=== PATIENT | male | born 1985 | race Caucasian/White ===

== ENCOUNTER 2017-02-06 12:46 | Emergency (ER) | payer BC ==
--- NOTE | 2017-02-06 13:47 | ED Physician Documentation ---
PD HPI CHEST PAIN - Stated complaint Stated Complaint: CP - Chief complaint Chief Complaint: Cardiac - History obtained from History obtained from: Patient - History of Present Illness Timing - onset: Last night (had brief chest pain last night for few minutes. again today when loading bag into car. No dyspnea. Concerned for heart related.) , Yesterday Timing - onset during: Light activity Timing - duration: Minutes Timing - details: Abrupt onset, Now resolved. No: Still present in ED Quality: Aching, Sharp, Pain Location: Substernal, Left chest Radiation: No: Jaw, Back Worsened by: No: Inspiration, Movement Associated symptoms: No: Shortness of air, Nausea, Vomiting, Feeling faint / dizzy, General Weakness Similar symptoms before: Has not had sx before Recently seen: Not recently seen Review of Systems Constitutional: denies: Fever, Chills Nose: denies: Rhinorrhea / runny nose, Congestion Throat: denies: Sore throat Cardiac: denies: Palpitations Respiratory: denies: Cough GI: denies: Nausea, Vomiting, Diarrhea Skin: denies: Rash, Lesions PD PAST MEDICAL HISTORY - Past Medical History Past Medical History: Yes Cardiovascular: Hypertension Respiratory: None Neuro: None - Past Surgical History Past Surgical History: No - Present Medications Home Medications: Ambulatory Orders Medication Instructions Recorded Confirmed FLUoxetine [PROzac] 10 mg PO DAILY 02/06/17 02/06/17 Lisinopril 10 mg PO DAILY 02/06/17 02/06/17 hydroCHLOROthiazide 12.5 mg PO DAILY 02/06/17 02/06/17 [Hydrochlorothiazide] - Allergies Allergies/Adverse Reactions: Allergies Allergy/AdvReac Type Severity Reaction Status Date / Time No Known Drug Allergies Allergy Verified 02/06/17 13:00 - Social History Does the pt smoke?: No Smoking Status: Never smoker PD ED PE NORMAL - Vitals Vital signs reviewed: Yes - General General: Alert and oriented X 3, No acute distress, Well developed/nourished - HEENT HEENT: Pharynx benign - Neck Neck: Supple, no meningeal sign, No adenopathy - Cardiac Cardiac: RRR, No murmur - Respiratory Respiratory: Clear bilaterally, Other (no chestwall tenderness) - Abdomen Abdomen: Soft, Non tender Results - Vitals Vitals: Oxygen O2 Source Room air - EKG (time done) 12:53 Rate: Rate (enter#) (65) Rhythm: NSR [place]: Normal Intervals: Normal [place] QRS: Normal Ischemia: Normal ST segments. No: ST elevation c/w ischemia, ST depression Compare to prior EKG: Old EKG unavailable - Labs Labs: Laboratory Tests 02/06/17 02/06/17 14:32 14:32 Sodium 141 Potassium 4.3 Chloride 104 Carbon Dioxide 26 Anion Gap 11.0 BUN 14 Creatinine 0.8 Estimated GFR (MDRD) 114 Glucose 90 Calcium 9.3 Total Bilirubin 0.6 AST 20 ALT 20 Alkaline Phosphatase 40 L Troponin I < 0.04 Total Protein 6.5 L Albumin 4.0 Globulin 2.5 Albumin/Globulin Ratio 1.6 Lipase 26 - Rads (name of study) chest Radiology: Prelim report reviewed, EMP read contemporaneously (normal) PD MEDICAL DECISION MAKING - ED course Complexity details: reviewed results, considered differential (low prob for ND given age and such. He was concerned given his history of HTN. Also did CXR with normal appearing mediastinum and lungs. ), d/w patient Departure - Departure Disposition: 01 Home, Self Care Clinical Impression: Chest pain Qualifiers: Chest pain type: precordial pain Qualified Code(s): R07.2 - Precordial pain Condition: Stable Record reviewed to determine appropriate education?: Yes Instructions: ED Chest Pain Atypical Unkn Cause Follow-Up: ROBERT CARDOSO MD [Primary Care Provider] - Comments: No signs of dangerous causes for the pain at this time. This may be musculoskeletal. You can take some Tylenol or ibuprofen if needed for the pains. Follow-up with your primary care should you have recurring episodes over the next several days. Return if other symptoms associated such as trouble breathing, fevers, lightheadedness, exertional symptoms consistently Discharge Date/Time: 02/06/17 15:40
--- NOTE | 2017-02-06 14:33 | XRAY Report ---
EXAM: CHEST RADIOGRAPHY EXAM DATE: 02/06/2017 02:21 PM. CLINICAL HISTORY: Anterior chest pain. COMPARISON: None. TECHNIQUE: 2 views. FINDINGS: Lungs/Pleura: Mildly hyperexpanded, but clear. No effusion or pneumothorax. Mediastinum: Heart and mediastinal contours are unremarkable. Upper lobe vessels not distended. Other: None. IMPRESSION: No acute disease. [facility] Referring Provider Line: [phone] SITE ID: [id number]
[2017-02-06 14:42] VITALS: BP 130/84
[2017-02-06 14:52] LABS: ALBUMIN/GLOBULIN RATIO 1.6 (1.0-2.2); BILIRUBIN,TOTAL 0.6 mg/dL (0.2-1.0); CALCIUM 9.3 mg/dL (8.5-10.3); CREATININE 0.8 mg/dL (0.6-1.2); TOTAL PROTEIN 6.5 g/dL (6.7-8.2)
== END 2017-02-06 15:40 | disposition home or self-care (01) ==
LOC: ED 12:46
DX: R07.2 Precordial pain (principal); I10 Essential (primary) hypertension
CPT/HCPCS: 36415; 71020; 80053; 83690; 84484; 93005; 99283; 99284

== ENCOUNTER 2022-09-18 11:34 | Emergency (ER) | payer BC, OTHER ==
[2022-09-18 11:54] VITALS: O2SAT 100
--- NOTE | 2022-09-18 11:59 | ED Physician Documentation ---
PD HPI UPPER EXT INJURY - Stated complaint Stated Complaint: LT THUMB LAC - Chief complaint Chief Complaint: Laceration - History obtained from History obtained from: Patient - History of Present Illness Location: Left, Finger (thumb) Type of injury: Laceration Associated symptoms: No: Weakness, Tingling Contributing factors: No: Anticoagulated, Prior ortho surgery - Additonal information Additional information: 37-year-old male presents to the emergency department for laceration to left thumb, palmar aspect, proximal phalanx. Approximately 0.5 cm, linear. Not bleeding. Tetanus up-to-date. Patient is right-handed. Nothing makes it better or worse. He states that he has some mild numbness to the distal tip of the thumb. PD PAST MEDICAL HISTORY - Past Medical History Past Medical History: Yes Cardiovascular: Hypertension Respiratory: None - Past Surgical History Past Surgical History: No - Present Medications Home Medications: Ambulatory Orders Medication Instructions Recorded Confirmed FLUoxetine [PROzac] 10 mg PO DAILY 02/06/17 09/18/22 hydroCHLOROthiazide 12.5 mg PO DAILY 02/06/17 09/18/22 [Hydrochlorothiazide] lisinopriL [Lisinopril] 10 mg PO DAILY 02/06/17 09/18/22 - Allergies Allergies/Adverse Reactions: Allergies Allergy/AdvReac Type Severity Reaction Status Date / Time No Known Drug Allergies Allergy Verified 09/18/22 11:45 - Social History Does the pt smoke?: No Smoking Status: Never smoker Does the pt drink ETOH?: No Does the pt have substance abuse?: No - Immunizations Immunizations are current?: Yes PD ED PE NORMAL - Vitals Vital signs reviewed: Yes - General General: Alert and oriented X 3, No acute distress - Extremities Extremities: Other (L thumb - 0.5cm Linear laceration, subcutaneous to the palmar aspect of the proximal phalanx. Neurovascular intact. No tendon injury. Full range of motion.) - Neuro Neuro: Alert and oriented X 3 Results - Vitals Vitals: Vital Signs - 24 hr 09/18/22 09/18/22 11:43 12:19 Temperature 36.9 C 36.8 C Heart Rate 70 68 Respiratory 16 16 Rate Blood Pressure 144/82 H 133/79 H O2 Saturation 100 100 Oxygen O2 Source Room air Procedures - Laceration (location) L thumb Length in cm: 0.5 Wound type: Linear, Superficial Neurovascular status: Sensory intact, Motor intact, Vascular intact Tendon involvement: Tendon intact Wound preparation: Irrigated copiously NS, Wound explored, To the base Skin layer closure: Dermabond (T ring closure) Other: Patient tolerated well, No complications, Neurovascular intact, Tetanus UTD PD Medical Decision Making - ED course Complexity details: considered differential, d/w patient ED course: Laceration was irrigated with saline, a T ring closure system was used to repair the wound. Tolerated well. No complications. No tendon injury. Will have h im follow-up with his doctor for further care. Patient counseled regarding signs and symptoms for which I believe and urgent re-evaluation would be necessary. Patient with good understanding of and agreement to plan and is comfortable going home at this time This document was made in part using voice recognition software. While efforts are made to proofread this document, sound alike and grammatical errors may occur. Departure - Departure Disposition: 01 Home, Self Care Clinical Impression: Thumb laceration Qualifiers: Encounter type: initial encounter Damage to nail status: without damage Foreign body presence: without foreign body Laterality: left Qualified Code(s): S61.012A - Laceration without foreign body of left thumb without damage to nail, initial encounter Condition: Good Instructions: ED Laceration Hand Follow-Up: your,doctor as needed [Other] Comments: The dressing should fall off in a few days. Keep the wound clean. Do not apply ointment as this may dissolve the glue. If the bandage has not fallen off within 7 days, you can apply ointment and wait for the glue to dissolve and then remove the bandage. Please return if you worsen. Return if you notice redness, swelling or drainage from the wound. Forms: PCP List Discharge Date/Time: 09/18/22 12:21
[2022-09-18 12:23] VITALS: BP 133/79
== END 2022-09-18 12:21 | disposition home or self-care (01) ==
LOC: ED 11:34
DX: S61.012A Laceration without foreign body of left thumb without damage to nail, initial encounter (principal); X58.XXXA Exposure to other specified factors, initial encounter; I10 Essential (primary) hypertension
CPT/HCPCS: 12001; 99281